=== PATIENT | male | born 1990 | race African-American/Black ===

== ENCOUNTER 2019-05-23 06:24 | Emergency (ER) | payer SELFPAY ==
[2019-05-23 07:06] LABS: #Basophils 0.1 thou/uL (0.0-0.2); #Eosinphils 0.2 thou/uL (0.0-0.7); #Lymphocytes 3.4 thou/uL (1.20-3.40); #Monocytes 0.6 thou/uL (0.11-0.59); #Neutrophils 2.8 thou/uL (1.40-6.50); %Basophils 1.1 % (0.0-1.0); %Eosinophils 3.1 % (0.0-10.0); %Monocytes 8.2 % (0.0-10.0); %Neutrophils 39.7 % (42.0-75.0); Hemoglobin 12.7 g/dL (14.0-18.0); Mean Corpuscular HGB CONC 32.4 g/dL (32.0-36.0); Mean Corpuscular Hemoglobin 22.6 pg (27.0-31.0); Mean Corpuscular Volume 69.8 fL (78.0-98.0); Mean Platelet Volume 10.9 fL (7.4-10.4); Platelet Count 170 thou/uL (130-400); RBC Distribution Width 13.3 % (11.5-14.5); Red Blood Cell (RBC) Count 5.62 mill/uL (4.70-6.10)
[2019-05-23 07:21] LABS: MDiff Complete? YES; Microcytosis MODERATE=15-30 cells (100X) (0-5/hpf); Platelet Morphology Comment Appears Adequate; Polychromasia SLIGHT = 2-3 cells (100X) (0-2/hpf); Target Cells SLIGHT = 2-5 cells (100X) (0-1/hpf)
[2019-05-23 07:25] LABS: ALT (SGPT) 15 U/L (8-55); AST (SGOT) 22 U/L (5-34); Albumin 4.1 g/dL (3.5-5.0); Alkaline Phosphatase 78 U/L (40-150); Anion Gap 15 mmol/L (10-20); BUN (Urea Nitrogen) 11 mg/dL (8.9-20.6); Bilirubin, Total 0.2 mg/dL (0.2-1.2); Calc. Creatinine Clearance 0 mL/min (70-130); Calcium 9.2 mg/dL (7.8-10.44); Carbon Dioxide 18 mmol/L (22-29); Chloride 109 mmol/L (98-107); Estimated GFR-MDRD Greater than 90; Globulin 3.2 g/dL (2.4-3.5); Glucose 109 mg/dL (70-105); Potassium 4.1 mmol/L (3.5-5.1); Protein, Total 7.3 g/dL (6.0-8.3); Sodium 138 mmol/L (136-145)
--- NOTE | 2019-05-23 08:03 | RAD ---
RADIOGRAPH CHEST 1 VIEW: DATE: 05/23/2019 HISTORY: 28-year-old male with acute chest pain FINDINGS: There is cardiomegaly. There is no evidence of airspace density, pulmonary edema, or pneumothorax. Th e lateral costophrenic angles are not effaced. IMPRESSION: 1) No acute pulmonary findings. 2) mild cardiomegaly without congestive heart failure.
[2019-05-23] MEDS ORDERED: Ketorolac Tromethamine 30 MG/ML VIAL ONE (08:11)
--- NOTE | 2019-05-26 14:32 | EKG ---
Test Reason : CHEST PAIN Blood Pressure : / mmHG Vent. Rate : 060 BPM Atrial Rate : 060 BPM P-R Int : 180 ms QRS Dur : 092 ms QT Int : 392 ms P-R-T Axes : 066 076 038 degrees QTc Int : 392 ms Normal sinus rhythm with sinus arrhythmia Possible Left atrial enlargement ST elevation, consider early repolarization Borderline ECG Confirmed by BRENDAN RIVAS ([id number]), assistant film editor AVEL ASHLEY ([id number]) on 05/26/2019 2:32:17 PM Referred By: Confirmed By:BRENDAN RIVAS
== END 2019-05-23 08:24 | disposition home or self-care (01) ==
LOC: ERS 06:24
DX: R07.9 Chest pain, unspecified (principal); F17.210 Nicotine dependence, cigarettes, uncomplicated
CPT/HCPCS: 71045; 80053; 84484; 85025; 85379; 93005; 96374; J1885

== ENCOUNTER 2023-05-13 15:05 | Emergency (ER) | payer SELFPAY ==
[2023-05-13] MEDS ORDERED: Acetaminophen 500 MG TAB ONE (15:30)
[2023-05-13] MEDS ORDERED: Ondansetron PF 4 MG/2 ML Vial ONE (15:36)
[2023-05-13] MEDS ORDERED: Ketorolac Tromethamine 30 MG/ML VIAL ONE (15:36)
[2023-05-13 16:07] LABS: Bacteria/HPF None Seen HPF (None Seen); Bilirubin Negative (Negative); Blood, Urine Negative (Negative); CAUTI Indications for Culture Dysuria,urgency,freq; Clarity Clear (Clear); Glucose, Urine (Dipstick) Normal (Negative); Ketone, Urine Negative (Negative); Leukocyte Negative Leu/uL (Negative); Nitrite Negative (Negative); Protein, Urine (Dipstick) Negative (Neg-Trace); RBC/HPF 0-3 HPF (0-3); Specific Gravity, Urine 1.005 (1.002-1.036); Squamous Epithelial 0-3 HPF (0-3); Urobilinogen Normal mg/dL (Less than 2); WBC/HPF 0-3 HPF (0-3); pH, Urine 7.5 (5.0-9.0)
[2023-05-13 16:10] LABS: Urine Culture Reflex No No
[2023-05-13 16:34] LABS: SARS-CoV-2 NAA Rapid Test DETECTED (NotDetected)
== END 2023-05-13 17:06 | disposition home or self-care (01) ==
LOC: ERS 15:05
DX: U07.1 COVID-19 (principal); F17.290 Nicotine dependence, other tobacco product, uncomplicated
CPT/HCPCS: 81001; 96361; 96374; 96375; J1885; J2405

== ENCOUNTER 2025-05-09 17:08 | Emergency (ER) | payer BC ==
[2025-05-09] MEDS ORDERED: Ketorolac Tromethamine 30 MG (1 mL) VIAL ONE (17:50)
[2025-05-09 18:06] LABS: #Basophils 0.03 10x3/uL (0.0-0.2); #Eosinophils 0.10 10x3/uL (0.0-0.7); #Monocytes 0.57 10x3/uL (0.11-0.59); #Neutrophils 3.32 10x3/uL (1.40-6.50); %Basophils 0.4 % (0.0-1.0); %Eosinophils 1.4 % (0.0-10.0); %Lymphocytes 43.6 % (21.0-51.0); %Monocytes 8.0 % (0.0-10.0); %Neutrophils 46.3 % (42.0-75.0); Hematocrit 43.9 % (42.0-52.0); Hemoglobin 14.3 g/dL (14.0-18.0); Mean Corpuscular Hemoglobin 21.8 pg (27.0-31.0); Mean Corpuscular Volume 67.0 fL (78.0-98.0); Platelet Count 227 10x3/uL (130-400); Red Blood Cell (RBC) Count 6.55 mill/uL (4.70-6.10); White Blood Cell (WBC) Count 7.16 10x3/uL (4.8-10.8)
[2025-05-09 18:18] LABS: ALT (SGPT) 14 U/L (Less than 45); AST (SGOT) 27 U/L (11-34); Albumin 5.3 g/dL (3.1-4.5); Alkaline Phosphatase 75 U/L (40-110); Anion Gap 15 mmol/L (10-20); BUN (Urea Nitrogen) 13 mg/dL (8.9-20.6); Bilirubin, Total 0.6 mg/dL (0.3-1.2); Calc. Creatinine Clearance 0 mL/min (70-130); Calcium 10.0 mg/dL (7.8-10.44); Carbon Dioxide 25 mmol/L (22-29); Chloride 102 mmol/L (98-107); Globulin 3.7 g/dL (2.4-3.5); Glucose 89 mg/dL (70-105); Potassium 4.2 mmol/L (3.5-5.1); Sodium 138 mmol/L (136-145)
[2025-05-09 18:27] LABS: Troponin I Less than 0.010 ng/mL (< 0.028)
[2025-05-09 18:30] LABS: Microcytosis SLIGHT = 6-15 cells HPF (0-5); Platelet Adequacy Comment Platelets Normal; Polychromasia SLIGHT = 2-3 cells HPF (0-2); Target Cells SLIGHT = 2-5 cells HPF (0-1)
== END 2025-05-09 18:36 | disposition home or self-care (01) ==
LOC: ERS 17:08
DX: R07.89 Other chest pain (principal); F17.290 Nicotine dependence, other tobacco product, uncomplicated
CPT/HCPCS: 71045; 80053; 84484; 85025; 93005; 96374; J1885